=== PATIENT | male | born 1965 | race Caucasian/White ===

== ENCOUNTER 2022-08-03 20:15 | Emergency (ER) | payer BC, SELFPAY ==
[2022-08-03] VITALS (39 sets, daily range): BP systolic 135–169; BP diastolic 74–105; PULSE 77–94; RESP 0–20; TEMP 37.2; O2SAT 93–99
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
[2022-08-03] MEDS: Ondansetron 4 MG/2 ML VIAL IVP (20:19)
[2022-08-03 20:25] LABS: Abs Immature Grans 0.01 10^3/uL (0.0-0.06); Absolute Basophil Count 0.06 10^3/uL (0.0-0.2); Absolute Eosinophil Count 0.18 10^3/uL (0.0-0.7); Absolute Lymphocyte Count 2.67 10^3/uL (1.2-3.4); Absolute Monocyte Count 0.47 10^3/uL (0.1-0.8); Absolute Neutrophil Count 3.49 10^3/uL (1.2-6.7); Basophils % 0.9; Eosinophils % 2.6; HCT 46.9 % (40.0-50.0); HGB 16.5 g/dL (13.5-17.5); Immature Grans % 0.1; Lymphocytes % 38.8; MCH 30.7 pg (27.0-33.0); MCHC 35.2 % (32.0-36.0); MCV 87 fL (80-95); MPV 10.3 fL (8.0-11.0); Monocytes % 6.8; Neutrophils % 50.8; Platelet Count 246 10^3/uL (130-400); RBC 5.37 10^6/uL (4.36-5.78); RDW 12.4 % (11.8-14.1); RDW-SD 39.3 fL; WBC 6.88 10^3/uL (4.4-10.8)
[2022-08-03 20:36] LABS: PTT Activated 24.5 sec (21.5-31.9); Prothrombin Time 9.9 sec (9.3-11.0)
[2022-08-03 20:39] LABS: ALT 34 U/L (16-63); AST 28 U/L (15-37); Albumin 4.4 g/dL (3.4-5.0); Alkaline Phosphatase 88 U/L (46-116); Anion Gap 11.6 mmol/L (3-11); BUN 27 mg/dL (7-18); Bilirubin, Total 0.6 mg/dL (0.2-1.0); CO2 26.4 mmol/L (21.0-32.0); CREATININE 1.4 mg/dL (0.70-1.30); Calcium 9.6 mg/dL (8.5-10.1); Chloride 102 mmol/L (98-107); Estimated GFR 59.36 (mL/min/1.73m2); Glucose 122 mg/dL (74-106); Potassium 3.8 mmol/L (3.5-5.1); Sodium 140 mmol/L (136-145); Total Protein 8.4 g/dL (6.4-8.2)
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
[2022-08-03 20:51] LABS: ETHANOL BLOOD < 3.0 mg/dL (<10)
[2022-08-03] MEDS: ACETAMINOPHEN 1,000 MG/100 ML BTL 400 MG IVPB (20:54)
[2022-08-03] MEDS: Normal Saline 500 ML 1000 ML IV (20:54)
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
[2022-08-03] MEDS: Normal Saline - Diluent 50 ML VIAL IJ (21:12)
[2022-08-03] MEDS: Omnipaque 350 MG/ML 100 ML BTL IJ (21:13)
--- NOTE | 2022-08-03 21:18 | NUR.NOTE ---
@ 2049 c-collar placed on.:
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
--- NOTE | 2022-08-03 23:00 | RT.EKG_ITS ---
APPROVED REPORT Exam: Resting ECG Reason for Exam: ams Patient Location: E HR:87 bpm ECG Measurements Heart Rate 87 AXIS MI 176 P 45 QRSd 98 QRS -10 QT 363 T 26 QTc 438 Conclusion Sinus rhythm...normal P axis, V-rate 60- 99 Physician: no stemi
[2022-08-04] VITALS (13 sets, daily range): BP systolic 134–153; BP diastolic 67–115; PULSE 80–90; RESP 7–23; O2SAT 94–96
== END 2022-08-04 01:59 | disposition home or self-care (01) ==
PROVIDERS: Emergency Provider Emergency Medicine
DX: S06.0X9A Concussion with loss of consciousness of unspecified duration, initial encounter (principal); V19.3XXA Pedal cyclist (driver) (passenger) injured in unspecified nontraffic accident, initial encounter; S12.690A Other displaced fracture of seventh cervical vertebra, initial encounter for closed fracture; S22.018A Other fracture of first thoracic vertebra, initial encounter for closed fracture; H57.02 Anisocoria; H53 Visual disturbances
CPT/HCPCS: 74177; 80053; 80307; 93005; 96361; 96365; 96375; 99285; 70450; 71260; 72125; 80320; 81003; 85025; 85610; 85730; 93010; 99284; J0131; J2405; J3490